=== PATIENT | male | born 1985 | race Caucasian/White ===

== ENCOUNTER 2018-02-03 16:13 | Emergency (ER) | payer OTHER ==
[2018-02-03 20:49] LABS: KETONE, URINE AUTO RFX NEGATIVE (NEGATIVE); LEUKOCYTE ESTERASE UR AUTO RFX NEGATIVE (NEGATIVE); MUCUS, URINE RFX SMALL (NEGATIVE); NITRITE, URINE AUTO RFX NEGATIVE (NEGATIVE); RBC, URINE AUTO RFX 3 /HPF (0-3); SPECIFIC GRAVITY UR AUTO RFX 1.027 (1.002-1.035); SQUAM EPITHELIAL CELL UR AURFX 0 /HPF (0-6); WBC, URINE AUTO RFX 1 /HPF (0-3)
[2018-02-03] MEDS: CIPROFLOXACIN 500 MG TAB PO (21:26)
[2018-02-03 22:46] LABS: CHLAMYDIA DNA AMPLIFICATION NEGATIVE (NEGATIVE); GC DNA AMPLIFICATION NEGATIVE (NEGATIVE)
== END 2018-02-03 21:41 | disposition home or self-care (01) ==
LOC: M ED 16:13
DX: N45.2 Orchitis (principal); I86.1 Scrotal varices; N43.3 Hydrocele, unspecified; Z72.0 Tobacco use
CPT/HCPCS: 76870

== ENCOUNTER 2018-05-28 14:04 | Emergency (ER) | payer OTHER | END 2018-05-28 15:37 | disposition home or self-care (01) | LOC: M ED 14:04 | DX: S06.9X0S Unspecified intracranial injury without loss of consciousness, sequela (principal); R51 Headache; F17.210 Nicotine dependence, cigarettes, uncomplicated | CPT/HCPCS: 70450 ==